=== PATIENT | female | born 1960 | race Caucasian/White ===

== ENCOUNTER 2022-05-11 15:26 | Emergency (ER) | payer OTHER ==
[2022-05-11 15:32] VITALS: BP 169/82; PULSE 74; RESP 18; TEMP 98.4; BMI 25.7
[2022-05-11] MEDS ORDERED: IBUPROFEN 600 MG TABLET (FP) PO ONE ×2 (16:55→16:59)
== END 2022-05-11 19:41 | disposition home or self-care (01) ==
LOC: JERFT 15:26
DX: S93.105A Unspecified dislocation of left toe(s), initial encounter (principal); Y99.9 Unspecified external cause status
CPT/HCPCS: 73630-TC-LT; 73660-TC-LT-FY; 99285-25